=== PATIENT | male | born 1990 | race African-American/Black ===

== ENCOUNTER 2016-12-21 23:44 | Emergency (ER) | payer MEDICAID ==
[~2016-12-21] VITALS: Ht 182.9 cm; Wt 73.8 kg
[2016-12-21 23:45] VITALS: BP 131/82
[2016-12-22] MEDS ORDERED: IBUPROFEN 200 MG TABLET PO ONE (01:00)
[2016-12-22] MEDS ORDERED: DIPH,PERTUSS(ACELL),TET VAC/PF 0.5 ML IM-VACC ONE ×2 (01:00→01:16)
[2016-12-22] MEDS ORDERED: IBUPROFEN 200 MG TABLET ONE (01:16)
[2016-12-22] MEDS ORDERED: BACITRACIN ZINC OINT 500U/GM, 0.9 GM ONE (01:16)
== END 2016-12-22 02:22 | disposition home or self-care (01) ==
LOC: ED 12-22 02:16
DX: S61.205A Unspecified open wound of left ring finger without damage to nail, initial encounter (principal); F17.200 Nicotine dependence, unspecified, uncomplicated; W51.XXXA Accidental striking against or bumped into by another person, initial encounter; Y93.89 Activity, other specified; Y92.89 Other specified places as the place of occurrence of the external cause; Y99.2 Volunteer activity; Z23 Encounter for immunization
CPT/HCPCS: 90471; 90715

== ENCOUNTER 2017-12-25 11:54 | Emergency (ER) | payer MEDICAID ==
[~2017-12-25] VITALS: Ht 182.9 cm; Wt 84.0 kg
[2017-12-25 11:57] VITALS: BP 172/84
[2017-12-25] MEDS ORDERED: ACETAMINOPHEN 500 MG TABLET ONE (12:24)
[2017-12-25] MEDS ORDERED: ACETAMINOPHEN 500 MG TABLET PO ONE (12:30)
[2017-12-25] MEDS ORDERED: LIDOCAINE-MPF 1%, 5ML ONE (12:43)
[2017-12-25] MEDS ORDERED: LIDOCAINE-MPF 1%, 5ML INFIL ONE (13:00)
== END 2017-12-25 13:22 | disposition home or self-care (01) ==
LOC: ED 13:16
DX: S06.0X0A Concussion without loss of consciousness, initial encounter (principal); S01.112A Laceration without foreign body of left eyelid and periocular area, initial encounter; Y04.0XXA Assault by unarmed brawl or fight, initial encounter; Y93.89 Activity, other specified; Y92.488 Other paved roadways as the place of occurrence of the external cause; Y99.2 Volunteer activity
CPT/HCPCS: 12011; 70450; 70486; 99284

== ENCOUNTER 2018-05-25 11:56 | Emergency (ER) | payer MEDICAID ==
[~2018-05-25] VITALS: Ht 188 cm; Wt 73.0 kg
[2018-05-25 12:03] VITALS: BP 137/79
[2018-05-25 12:32] LABS: MICROSCOPIC AUTO
[2018-05-25 12:33] LABS: CULTURE INDICATED? YES
[2018-05-25] MEDS ORDERED: CEFTRIAXONE 250 MG ONE (12:41)
[2018-05-25] MEDS ORDERED: AZITHROMYCIN 500 MG TABLET ONE (12:41)
[2018-05-25] MEDS ORDERED: AZITHROMYCIN 500 MG TABLET PO ONE (13:00)
[2018-05-25] MEDS ORDERED: CEFTRIAXONE 250 MG IM ONE (13:00)
== END 2018-05-25 13:07 | disposition home or self-care (01) ==
LOC: ED 13:00
DX: A56.01 Chlamydial cystitis and urethritis (principal); A54.01 Gonococcal cystitis and urethritis, unspecified
CPT/HCPCS: 81001; 87086; 87491; 87591; 96372; 99284; J0696

== ENCOUNTER 2018-08-08 15:27 | Emergency (ER) | payer MEDICAID ==
[~2018-08-08] VITALS: Ht 182.9 cm; Wt 72.5 kg
[2018-08-08 15:43] VITALS: BP 130/88
[2018-08-08] MEDS ORDERED: BACITRACIN ZINC OINT 500U/GM, 0.9 GM ONE (15:59)
[2018-08-08] MEDS ORDERED: DIPH,PERTUSS(ACELL),TET VAC/PF 0.5 ML IM-VACC ONE (16:00)
== END 2018-08-08 16:58 | disposition home or self-care (01) ==
LOC: ED 16:45
DX: S60.222A Contusion of left hand, initial encounter (principal); S80.12XA Contusion of left lower leg, initial encounter; W22.8XXA Striking against or struck by other objects, initial encounter; Y93.89 Activity, other specified; Y92.410 Unspecified street and highway as the place of occurrence of the external cause; Y99.8 Other external cause status
CPT/HCPCS: 99283

== ENCOUNTER 2018-08-16 12:38 | Emergency (ER) | payer MEDICAID ==
[~2018-08-16] VITALS: Ht 182.9 cm; Wt 72.4 kg
[2018-08-16] MEDS ORDERED: ACETAMINOPHEN 500 MG TABLET ONE (13:25)
[2018-08-16] MEDS ORDERED: ACETAMINOPHEN 500 MG TABLET PO ONE (13:30)
--- NOTE | 2018-08-16 13:51 | NUR ---
TASK RN: FIRST CONTACT WITH PT. 28 Y/O MALE PRESENTS TO ED WITH C/O COUGH WITH HEMOPTYSIS X 2 DAYS. "I'VE BEEN COUGHING A LOT FOR THE LAST TWO DAYS. I'VE BEEN WEAK ALSO FOR THE LAST FEW DAYS. I WAS COUGING UP SOME BLOOD TOO." NO ACUTE DISTRESS NOTED. NO C/O N/V/D, TRAUMA, CP. PT PLACED ON CONT PULSE OX,NIBP, RESOURCING ADVISOR.
[2018-08-16 14:03] LABS: MEAN CORPUSCULAR HEMOGLOBIN 29.4 pg (27.5-34.5); MEAN CORPUSCULAR VOLUME 89.2 fL (81-97); MEAN PLATELET VOLUME 8.4 fL (7.4-10.4); PLATELET COUNT 257 x10^3/uL (130-400); RED BLOOD COUNT 4.67 x10^6/uL (4.38-5.82); RED CELL DISTRIBUTION WIDTH 14.8 % (9.4-14.8)
[2018-08-16 14:16] LABS: ALANINE AMINOTRANSFERASE 34 U/L (12-78); ALBUMIN 2.8 g/dL (3.4-5.0); ANION GAP 5 mmol/L (5-15); CALCIUM 8.4 mg/dL (8.5-10.1); CHLORIDE 101 mmol/L (98-107)
[2018-08-16] MEDS ORDERED: CEFTRIAXONE PMX 1GM/50ML 50 ML ONE (14:18)
[2018-08-16 14:19] LABS: ALKALINE PHOSPHATASE 81 U/L (45-117); BILIRUBIN,TOTAL 0.2 mg/dL (0.2-1.0); CREATININE 0.93 mg/dL (0.7-1.3); TOTAL PROTEIN 8.1 g/dL (6.4-8.2)
--- NOTE | 2018-08-16 14:26 | NUR ---
TASK RN: MEDICATION ADMINISTERED PER EMAR. PIV ESTABLISHED. PT TOLERATED WITH NO COMPLICATIONS.
[2018-08-16] MEDS ORDERED: CEFTRIAXONE 1,000 MG in SODIUM CHLORIDE 0.9% 50 ML IVPB ONE (14:30)
[2018-08-16] MEDS ORDERED: SODIUM CHLORIDE 0.9% 1,000ML IVBOLUS ONE (14:30)
[2018-08-16] MEDS ORDERED: SODIUM CHLORIDE FLUSH 10ML SYR IVF ONE (14:30)
[2018-08-16] MEDS ORDERED: AZITHROMYCIN 500 MG in SODIUM CHLORIDE 0.9% 250 ML IV ONE (14:30)
[2018-08-16 14:39] LABS: RAPID INFLUENZA A Negative (Negative); RAPID INFLUENZA B Negative (Negative)
--- NOTE | 2018-08-16 14:49 | NUR ---
OKAY PER PA FOR PT TO EAT. PT ORDERED DIET TRAY.
[2018-08-16 15:03] LABS: MD YES
--- NOTE | 2018-08-16 15:11 | NUR ---
PT MEDICATED PER ORDER. PT IS EATING HIS SNACK AND WATCHING TV, RESPIRATIONS EQUAL AND NON LABORED. NAD. PT IS CONNECTED TO THE MONITOR. CALL LIGHT WITHIN REACH.
[2018-08-16 15:24] LABS: <PLATELET ESTIMATE> ADEQUATE; <PLT MORPHOLOGY> NORMAL PLT MORPH; <RBC MORPHOLOGY> NORMAL; BAND#(MANUAL) 0.11 x10^3/uL; BANDS%(MANUAL) 1 % (0-7); LYMPH#(MANUAL) 0.88 x10^3/uL (1-3.4); LYMPHS% (MANUAL) 8 % (22-44); MONOS#(MANUAL) 1.54 x10^3/uL (0.3-2.7); MONOS% (MANUAL) 14 % (2-9); MYELOCYTES# (MANUAL) 0.11 x10^3/uL (0-0); MYELOCYTES% (MANUAL) 1 % (0-0); SEG#(MANUAL) 8.36 x10^3/uL (1.8-6.8); SEGS% (MANUAL) 76 % (42-75)
--- NOTE | 2018-08-16 15:44 | NUR ---
PT GIVEN DIET TRAY. PT IS EATING AND APPRECIATIVE.
--- NOTE | 2018-08-16 15:56 | NUR ---
PT IS RESTING IN BED WITH EYES CLOSED, RESPIRATIONS EQUAL AND NON LABORED. NAD. PT IS CONNECTED TO THE MONITOR. CALL LIGHT WITHIN REACH.
[2018-08-16 17:04] VITALS: BP 131/51
--- NOTE | 2018-08-16 17:05 | NUR ---
Patient given discharge instructions and they have confirmed that they understand the instructions. Patient ambulatory with steady gait.
== END 2018-08-16 17:07 | disposition home or self-care (01) ==
LOC: ED 14:47
DX: J18.1 Lobar pneumonia, unspecified organism (principal); F17.200 Nicotine dependence, unspecified, uncomplicated; F15.10 Other stimulant abuse, uncomplicated
CPT/HCPCS: 36415; 71046; 80053; 83605; 84145; 85025; 87400; 93005; 96365; 96368; 99284; J0456; J0696; J7030; J7050

== ENCOUNTER 2018-08-18 10:46 | Emergency (ER) | payer MEDICAID ==
[~2018-08-18] VITALS: Ht 182.9 cm; Wt 74.0 kg
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
[2018-08-18] MEDS ORDERED: IBUPROFEN 200 MG TABLET PO ONE (11:30)
[2018-08-18] MEDS ORDERED: IBUPROFEN 200 MG TABLET ONE (11:32)
[2018-08-18 12:46] LABS: MEAN CORPUSCULAR HEMOGLOBIN 28.9 pg (27.5-34.5); MEAN CORPUSCULAR HGB CONC 32.4 g/dL (33.2-36.2); MEAN CORPUSCULAR VOLUME 89.1 fL (81-97); RED BLOOD COUNT 4.57 x10^6/uL (4.38-5.82); RED CELL DISTRIBUTION WIDTH 14.7 % (9.4-14.8)
[2018-08-18 12:53] LABS: ALANINE AMINOTRANSFERASE 45 U/L (12-78); ALBUMIN 3.1 g/dL (3.4-5.0); ANION GAP 7 mmol/L (5-15); CALCIUM 9.4 mg/dL (8.5-10.1); CHLORIDE 107 mmol/L (98-107); CREATININE 0.87 mg/dL (0.7-1.3)
[2018-08-18 12:55] LABS: ALKALINE PHOSPHATASE 83 U/L (45-117); BILIRUBIN,TOTAL 0.2 mg/dL (0.2-1.0); TOTAL PROTEIN 8.6 g/dL (6.4-8.2)
[2018-08-18 12:59] VITALS: BP 131/84
[2018-08-18 13:01] LABS: BASOPHILS # (AUTO) 0.01 x10^3/uL (0-0.1); BASOPHILS % (AUTO) 0 % (0-1); EOSINOPHILS # (AUTO) 0.12 x10^3/uL (0-0.4); EOSINOPHILS % (AUTO) 2 % (1-7); LYMPHOCYTES # (AUTO) 1.04 x10^3/uL (1-3.4); LYMPHOCYTES % (AUTO) 17 % (22-44); MD SCAN; MEAN PLATELET VOLUME 8.1 fL (7.4-10.4); MONOCYTES # (AUTO) 0.65 x10^3/uL (0.2-0.8); MONOCYTES % (AUTO) 11 % (2-9); NEUTROPHILS # (AUTO) 4.29 x10^3/uL (1.8-6.8); NEUTROPHILS % (AUTO) 70 % (42-75); PLATELET COUNT 403 x10^3/uL (130-400)
--- NOTE | 2018-08-18 13:06 | NUR ---
pt reports decrease in pain. appears comfortable on gurney drawing on phone case with marker. waiting for completed lab work.
== END 2018-08-18 14:01 | disposition home or self-care (01) ==
LOC: ED 11:35
DX: J18.1 Lobar pneumonia, unspecified organism (principal); F17.200 Nicotine dependence, unspecified, uncomplicated
CPT/HCPCS: 36415; 71046; 80053; 83605; 84145; 85025; 87040; 99284

== ENCOUNTER 2018-10-22 23:16 | Emergency (ER) | payer MEDICAID ==
[~2018-10-22] VITALS: Ht 182.9 cm; Wt 74.3 kg
--- NOTE | 2018-10-22 23:30 | NUR ---
[id number]
--- NOTE | 2018-10-22 23:35 | NUR ---
[id number]
[2018-10-22 23:37] VITALS: BP 141/86
== END 2018-10-22 23:59 | disposition home or self-care (01) ==
LOC: ED 23:30
DX: L73.9 Follicular disorder, unspecified (principal); F17.200 Nicotine dependence, unspecified, uncomplicated
CPT/HCPCS: 99283

== ENCOUNTER 2020-12-21 23:42 | Inpatient (IN) | payer MEDICAID, OTHER ==
[~2020-12-21] VITALS: Ht 185.4 cm; Wt 78.0 kg
--- NOTE | 2020-12-22 00:53 | NUR ---
QUALITY ASSURANCE ASSESSOR: PT. TO ROOM FROM LOBBY AT THIS TIME.
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
[2020-12-22] MEDS ORDERED: CLINDAMYCIN PMX 600MG/50ML 50 ML IV ONE (01:30)
[2020-12-22] MEDS ORDERED: ONDANSETRON 2MG/ML, 2ML ONE (01:30)
[2020-12-22] MEDS ORDERED: ONDANSETRON 2MG/ML, 2ML IVPush ONE (01:30)
[2020-12-22] MEDS ORDERED: CLINDAMYCIN PMX 600MG/50ML 50 ML ONE (01:30)
[2020-12-22] MEDS ORDERED: MORPHINE SULFATE 4 MG/ML, 1ML ONE (01:30)
[2020-12-22] MEDS ORDERED: MORPHINE SULFATE 4 MG/ML, 1ML IVPush ONE (01:30)
[2020-12-22 01:40] LABS: BASOPHILS % (AUTO) 0 % (0-1); EOSINOPHILS % (AUTO) 1 % (1-7); LYMPHOCYTES % (AUTO) 19 % (22-44); MD NO; MEAN CORPUSCULAR HGB CONC 33.5 g/dL (33.2-36.2); MEAN PLATELET VOLUME 8.8 fL (7.4-10.4); MONOCYTES % (AUTO) 11 % (2-9); NEUTROPHILS % (AUTO) 70 % (42-75); PLATELET COUNT 227 x10^3/uL (130-400); RED CELL DISTRIBUTION WIDTH 15.2 % (9.4-14.8)
[2020-12-22 01:48] LABS: ANION GAP 6 mmol/L (5-15); CALCIUM 8.9 mg/dL (8.5-10.1); CHLORIDE 103 mmol/L (98-107); CREATININE 1.09 mg/dL (0.7-1.3)
--- NOTE | 2020-12-22 02:12 | NUR ---
NO CULTURES TO BE DRAWN PER MARTHA ERP, ABX STARTED PER MAR
[2020-12-22] MEDS ORDERED: OMNIPAQUE 350 MG/ML, 75ML BOTTLE ONE (02:30)
--- NOTE | 2020-12-22 04:04 | NUR ---
PT RESTING IN BED WITH EYES CLOSED, EVEN AND SYMMETRICAL CHEST RISE, UNLABORED RESPIRATIONS, NADN, VSS
--- NOTE | 2020-12-22 05:00 | NUR ---
REPORT TO PB DILLARD
[2020-12-22 05:24] VITALS: BP 130/80
[2020-12-22] MEDS ORDERED: POLYETHYLENE GLYCOL 17 GM PACKET PO PRN (06:00)
[2020-12-22] MEDS ORDERED: ACETAMINOPHEN 325 MG TABLET PO PRN (06:00)
[2020-12-22] MEDS ORDERED: ONDANSETRON ODT 4 MG PO PRN (06:00)
[2020-12-22] MEDS ORDERED: OXYcodone IR 5MG TABLET PO PRN (06:00)
[2020-12-22] MEDS ORDERED: VANCOMYCIN PER PHARMACY MC PRN (06:00)
[2020-12-22] MEDS ORDERED: hydrALAzine 20 MG/ML, 1ML IVPush PRN (06:00)
[2020-12-22] MEDS ORDERED: DOCUSATE 100 MG CAPSULE PO PRN (06:00)
[2020-12-22] MEDS ORDERED: VANCOMYCIN PMX 1GM/200ML 200 ML IV ONE (06:00)
[2020-12-22] MEDS ORDERED: PROMETHAZINE 25 MG/ML, 1ML IM PRN (06:00)
[2020-12-22] MEDS ORDERED: KETOROLAC 30 MG/1 ML IV PRN (06:00)
[2020-12-22] MEDS ORDERED: ONDANSETRON 2MG/ML, 2ML IVPush PRN (06:00)
[2020-12-22] MEDS ORDERED: BISACODYL 10 MG SUPP PR PRN (06:00)
[2020-12-22] MEDS ORDERED: PHARMACOKINETIC MONITORING MC PRN (06:30)
[2020-12-22] MEDS ORDERED: VANCOMYCIN 1,900 MG in SODIUM CHLORIDE 0.9% 250 ML IV ONE (06:30)
[2020-12-22] MEDS ORDERED: PHARMACOKINETIC CONSULTATION MC ONE (06:30)
[2020-12-22] MEDS: AMPICILLIN/SULBACTAM 3 GM in SODIUM CHLORIDE 0.9% 100 ML IV SCH ×3 (06:51→18:34)
[2020-12-22] MEDS: SODIUM CHLORIDE 0.9% 1,000 ML IV SCH ×2 (06:52→16:31)
[2020-12-22 07:11] VITALS: BP 121/67
[2020-12-22] MEDS ORDERED: NICOTINE 14MG/24 HR PATCH.TD24 TD SCH (10:00)
[2020-12-22 13:34] VITALS: BP 121/67
[2020-12-22] MEDS ORDERED: VANCOMYCIN 1,500 MG in SODIUM CHLORIDE 0.9% 250 ML IV SCH (17:00)
[2020-12-22 19:44] VITALS: BP 132/82
[2020-12-22] MEDS ORDERED: NICOTINE 21 MG/24 HR PATCH.TD24 TD SCH (21:00)
== END 2020-12-22 23:21 | disposition left against medical advice (07) | DRG 603 ==
LOC: ED 12-22 01:43 → EDIP 12-22 05:37 → 4NE 12-22 05:40
PROVIDERS: ADMIT Internal Medicine; ATTEND Internal Medicine
DX: L03.211 Cellulitis of face (principal); F17.210 Nicotine dependence, cigarettes, uncomplicated; F12.90 Cannabis use, unspecified, uncomplicated; M26.02 Maxillary hypoplasia; L73.1 Pseudofolliculitis barbae; Z53.29 Procedure and treatment not carried out because of patient's decision for other reasons
CPT/HCPCS: 36415; 70487; 80048; 85025; 87040; 87070; 87077; 87205; 96374; 96375; G0378; J0295; J1885; J2405; J3370; Q9967; J2270; J7030; J7050

== ENCOUNTER 2021-04-09 17:27 | Emergency (ER) | payer MEDICAID ==
--- NOTE | 2021-04-09 18:32 | NUR ---
CALLED FOR TRIAGE, NO ANSWER
--- NOTE | 2021-04-09 18:41 | NUR ---
CALLED FOR TRIAGE, NO ANSWER
--- NOTE | 2021-04-09 18:52 | NUR ---
[id number] WHEN CALLED FOR TRIAGE
== END 2021-04-09 18:57 | disposition left against medical advice (07) ==
LOC: ED 17:45
DX: L02.01 Cutaneous abscess of face (principal); Z53.21 Procedure and treatment not carried out due to patient leaving prior to being seen by health care provider

== ENCOUNTER 2021-04-10 17:56 | Emergency (ER) | payer BC, MEDICAID ==
[~2021-04-10] VITALS: Ht 182.9 cm; Wt 77.0 kg
--- NOTE | 2021-04-10 22:43 | NUR ---
PT CALLED FOR ROOM. NA X 1
[2021-04-11 02:10] VITALS: BP 152/62
[2021-04-11] MEDS ORDERED: LIDOCAINE-MPF 1%, 5ML ONE (02:27)
[2021-04-11] MEDS ORDERED: LIDOCAINE-MPF 1%, 5ML INFIL ONE (02:30)
[2021-04-11] MEDS ORDERED: HYDROcodone/APAP 5/325 TABLET PO ONE (03:00)
[2021-04-11] MEDS ORDERED: HYDROcodone/APAP 5/325 TABLET ONE (03:01)
== END 2021-04-11 03:26 | disposition home or self-care (01) ==
LOC: ED 18:40
DX: L02.01 Cutaneous abscess of face (principal); F17.210 Nicotine dependence, cigarettes, uncomplicated
CPT/HCPCS: 10060; 99406

== ENCOUNTER 2021-04-14 00:24 | Emergency (ER) | payer BC, MEDICAID ==
[~2021-04-14] VITALS: Ht 182.9 cm; Wt 73.3 kg
--- NOTE | 2021-04-14 00:28 | NUR ---
NIL X 1 WHEN CALLED FROM TRIAGE.
[2021-04-14 00:30] VITALS: BP 129/93
[2021-04-14] MEDS ORDERED: LIDOCAINE-MPF 1%, 5ML INFIL ONE (01:30)
[2021-04-14] MEDS ORDERED: LIDOCAINE-MPF 1%, 5ML ONE (02:18)
== END 2021-04-14 03:07 | disposition home or self-care (01) ==
LOC: ED 02:00
DX: L02.01 Cutaneous abscess of face (principal); F17.210 Nicotine dependence, cigarettes, uncomplicated
CPT/HCPCS: 99406

== ENCOUNTER 2021-04-16 00:19 | Emergency (ER) | payer MEDICAID ==
[~2021-04-16] VITALS: Ht 182.9 cm; Wt 60.0 kg
[2021-04-16 01:30] VITALS: BP 136/72
--- NOTE | 2021-04-16 01:30 | NUR ---
Patient given discharge instructions and they have confirmed that they understand the instructions. Patient ambulatory with crutch walking. NAD, all questions answered appropriately, denies additional needs at this time. No personal belongings left in room after discharge.
== END 2021-04-16 01:32 | disposition home or self-care (01) ==
LOC: ED 00:30
DX: S70.11XA Contusion of right thigh, initial encounter (principal); W22.8XXA Striking against or struck by other objects, initial encounter; Y93.89 Activity, other specified; Y92.89 Other specified places as the place of occurrence of the external cause; Y99.8 Other external cause status
CPT/HCPCS: 99283